=== PATIENT | female | born 1965 | race Caucasian/White ===

== ENCOUNTER → 2021-02-08 | Outpatient (CLI) | payer OTHER | LOC: HEART CORB 12:42 | DX: R94.31 Abnormal electrocardiogram [ECG] [EKG] (principal); R07.2 Precordial pain; I38 Endocarditis, valve unspecified; R06.02 Shortness of breath; R07.9 Chest pain, unspecified | CPT/HCPCS: 93306 ==

== ENCOUNTER 2021-03-02 09:31 | Inpatient (IN) | payer OTHER ==
[~2021-03-02] VITALS: Ht 165.1 cm; Wt 63.5 kg
[2021-03-02 12:51] LABS: HEMOGLOBIN 13.1 gm/dl (12.3-15.3); RED BLOOD COUNT 4.14 M/UL (4.00-5.10); WHITE BLOOD COUNT 15.5 K/UL (4.5-11.0)
[2021-03-02] MEDS ORDERED: ASPIRIN EC81 MG PO (14:04)
[2021-03-02] MEDS ORDERED: BISOPROLOL-HCT1 EAC2 PO (14:04)
[2021-03-02] MEDS ORDERED: CYCLOBENZAPRINE10 MG PO (14:05)
[2021-03-02] MEDS ORDERED: IBU800 MG PO (14:06)
[2021-03-02] MEDS ORDERED: ZETIA10 MG PO (14:06)
[2021-03-02] MEDS ORDERED: PHENERGAN 25 MG25 M1 PO (14:07)
[2021-03-02] MEDS ORDERED: VALSARTAN80 MG PO (14:08)
[2021-03-02 20:59] LABS: HEMOGLOBIN 12.6 gm/dl (12.3-15.3); RED BLOOD COUNT 3.98 M/UL (4.00-5.10); WHITE BLOOD COUNT 12.6 K/UL (4.5-11.0)
[2021-03-02 21:12] LABS: BUN/CREATININE RATIO 14 (0-10)
[2021-03-03 04:59] LABS: HEMOGLOBIN 12.5 gm/dl (12.3-15.3); RED BLOOD COUNT 3.97 M/UL (4.00-5.10); WHITE BLOOD COUNT 11.1 K/UL (4.5-11.0)
[2021-03-03 05:35] LABS: BUN/CREATININE RATIO 13 (0-10)
[2021-03-04] MEDS ORDERED: LOPRESSOR 25 MG25 MG PO (14:04)
[2021-03-04] MEDS ORDERED: BRILINTA 90 MG90 MG PO (14:05)
[2021-03-04] MEDS ORDERED: ASPIRIN EC81 MG PO (14:05)
== END 2021-03-04 14:31 | disposition home or self-care (01) | DRG 247 ==
LOC: PROG CARE 09:31 → CDU 11:16 → CCU 12:25 → PROG CARE 03-03 10:12
PROVIDERS: ADMIT Internal Medicine Interventional Cardiology
PROC: 027035Z Dilation of Coronary Artery, One Artery with Two Drug-eluting Intraluminal Devices, Percutaneous Approach (ICD-10-PCS; principal; 2021-03-02)
PROC: 4A023N8 Measurement of Cardiac Sampling and Pressure, Bilateral, Percutaneous Approach (ICD-10-PCS; 2021-03-02)
PROC: B2151ZZ Fluoroscopy of Left Heart using Low Osmolar Contrast (ICD-10-PCS; 2021-03-02)
PROC: B2111ZZ Fluoroscopy of Multiple Coronary Arteries using Low Osmolar Contrast (ICD-10-PCS; 2021-03-02)
DX: I21.02 ST elevation (STEMI) myocardial infarction involving left anterior descending coronary artery (principal); I97.630 Postprocedural hematoma of a circulatory system organ or structure following a cardiac catheterization; Z20.822 Contact with and (suspected) exposure to COVID-19; F17.200 Nicotine dependence, unspecified, uncomplicated; I10 Essential (primary) hypertension; Z96.659 Presence of unspecified artificial knee joint; Z90.710 Acquired absence of both cervix and uterus; Z98.890 Other specified postprocedural states; Z88.0 Allergy status to penicillin; Z88.8 Allergy status to other drugs, medicaments and biological substances; Z82.49 Family history of ischemic heart disease and other diseases of the circulatory system; Z79.82 Long term (current) use of aspirin; Z79.899 Other long term (current) drug therapy
CPT/HCPCS: ECHO; 36415; 71250; 80048; 80061; 82550; 82553; 83036; 84484; 85027; 85347; 93005; 93306; 99152; 99153; C1725; C1769; C1874; C1887; J1170; J2060; J2250; J2270; J2405; J2550; J3010; J3246; J7030; J7040; U0002

== ENCOUNTER 2021-03-06 20:08 | Emergency (ER) | payer OTHER ==
[~2021-03-06 20:08] MED LIST: ASPIRIN EC81 MG PO; BISOPROLOL-HCT1 EAC2 PO; BRILINTA 90 MG90 MG PO; CYCLOBENZAPRINE10 MG PO; IBU800 MG PO; LOPRESSOR 25 MG25 MG PO; PHENERGAN 25 MG25 M1 PO; VALSARTAN80 MG PO; ZETIA10 MG PO
[2021-03-06 20:37] LABS: HEMOGLOBIN 12.5 gm/dl (12.3-15.3); RED BLOOD COUNT 3.94 M/UL (4.00-5.10); WHITE BLOOD COUNT 8.4 K/UL (4.5-11.0)
[2021-03-06 20:59] LABS: BUN/CREATININE RATIO 13 (0-10)
== END 2021-03-07 00:35 | disposition home or self-care (01) ==
LOC: ER1 20:08
PROVIDERS: Family Medicine
DX: R07.9 Chest pain, unspecified (principal); I25.10 Atherosclerotic heart disease of native coronary artery without angina pectoris; R77.8 Other specified abnormalities of plasma proteins; R94.31 Abnormal electrocardiogram [ECG] [EKG]; F17.200 Nicotine dependence, unspecified, uncomplicated; Z88.0 Allergy status to penicillin; Z88.1 Allergy status to other antibiotic agents; Z88.8 Allergy status to other drugs, medicaments and biological substances; Z90.49 Acquired absence of other specified parts of digestive tract
CPT/HCPCS: 71045; 80053; 82550; 82553; 83874; 84484; 85025; 93005; 99285

== ENCOUNTER → 2021-12-16 | Outpatient (CLI) | payer OTHER | LOC: HEART CORB 10:00 | DX: I47.1 Supraventricular tachycardia (principal); I07.1 Rheumatic tricuspid insufficiency ==